=== PATIENT | male | born 1980 | race Caucasian/White ===

== ENCOUNTER 2017-01-05 05:39 | Emergency (ER) | payer BC, OTHER ==
[~2017-01-05] VITALS: Ht 170.2 cm; Wt 100.7 kg
[2017-01-05 05:42] VITALS: Ht 170.2 cm; Wt 100.7 kg
--- NOTE | 2017-01-05 06:07 | EMERGENCY ROOM VISIT NOTE ---
History First contact with patient: 05:49 Chief Complaint: TESTICULAR PAIN Stated Complaint: TESTICULAR PAIN,DISCOMFORT TO URINATE History of Present Illness The patient is a 36 year old male who presents to the Emergency Room with complaints of testicular pain and urinary symptoms. The patient reports that for the last few weeks, he has had a sensation of incomplete emptying after urinating. He did see his primary care provider about this 2 weeks ago and had blood in the urine at that time. He was prescribed Bactrim for 10 days and states this seemed to improve his symptoms. However, the patient's symptoms returned after completing the Bactrim. The patient was again seen by his primary care provider yesterday and had a urine sample and culture performed. He was told that the urine was normal. He has had some intermittent right testicular pain and was seen by his primary care provider a few months ago regarding this. He had ultrasound which was negative, but was told to return here if his pain returned. He states that about one hour ago, he developed right testicular pain which lasted for a few minutes and then went away. He does have a sensation of incomplete emptying as well. He had an additional episode of pain while in the waiting room. He denies any pain at this time. He denies any abdominal or back pain. He denies any fevers/chills. He is scheduled to see a urologist next month. Review of Systems A complete 10 point review of systems was reviewed with the patient with pertinent positives and negatives as per history of present illness. All else were negative. Social History Smoking Status: Never Smoker Marital Status: Current/Historical Medications Scheduled Dicyclomine Hcl (Dicyclomine Hcl), 20 MG PO QID Omeprazole (Prilosec), 40 MG PO BID Physical Exam Vital Signs Date Time Temp Pulse Resp B/P (MAP) Pulse Ox O2 Delivery O2 Flow Rate FiO2 01/05/17 09:59 36.7 71 18 149/92 98 01/05/17 09:12 76 18 142/91 98 Room Air 01/05/17 05:42 36.7 68 20 147/79 99 Room Air Physical Exam VITALS: Vitals are noted on the nurse's note and reviewed by myself. Vital signs stable. GENERAL: This is a 36-year-old male, in no acute distress, nondiaphoretic, well- developed well-nourished. ABDOMEN: Soft, nontender to palpation. : No testicular tenderness. No erythema or swelling. RECTAL: Normal rectal tone. No enlargement of the prostate. No tenderness. NEURO: Patient was alert and oriented to person place and time. Medical Decision & Procedures ER Provider Diagnostic Interpretation: ULTRASOUND TESTES AND SCROTUM CLINICAL HISTORY: Right scrotal pain. COMPARISON STUDY: No priors. TECHNIQUE: Real-time, grayscale, and color Doppler sonography of the testes and scrotum is performed. Images are reviewed in the transverse and longitudinal planes. FINDINGS: The testes are normal in size and homogeneous in echotexture. The right testis measures 4.6 x 2.8 x 3.0 cm and the left testis measures 4.7 x 2.4 x 3.1 cm. No intratesticular mass is seen. Testicular blood flow is normal and symmetric. Normal Doppler waveforms are identified in both testes. The epididymal heads are normal in appearance. The right epididymal head measures 1.1 cm in length and the left epididymal head measures 1.3 cm in length. There is a 6 mm left epididymal head cyst. No varicocele or hydrocele is seen. There is nonspecific scrotal wall thickening. Small bilateral fat-containing inguinal hernias are identified. IMPRESSION: 1. Unremarkable sonographic appearance of the testes. 2. There are small bilateral fat-containing inguinal hernias. Laboratory Results Test 01/05/17 06:15 Urine Color DK YELLOW Urine Appearance CLEAR (CLEAR) Urine pH 5.0 (4.5-7.5) Urine Specific [place] 1.034 (1.000-1.030) Urine Protein TRACE (NEG) Urine Glucose (UA) NEG (NEG) Urine Ketones NEG (NEG) Urine Occult Blood NEG (NEG) Urine Nitrite NEG (NEG) Urine Bilirubin NEG (NEG) Urine Urobilinogen NEG (NEG) Urine Leukocyte Esterase NEG (NEG) Urine WBC (Auto) 1-5 /hpf (0-5) Urine RBC (Auto) 0-4 /hpf (0-4) Urine Hyaline Casts (Auto) 5-10 /lpf (0-5) Urine Epithelial Cells (Auto) 10-20 /lpf (0-5) Urine Bacteria (Auto) NEG (NEG) Medications Administered Medications (Trade) Dose Ordered Sig/Marek Route Start Time Stop Time Status Last Admin Dose Admin Ibuprofen (Motrin Tab) 800 mg NOW STAT PO 01/05/17 07:20 01/05/17 07:21 DC 01/05/17 07:28 800 MG Medical Decision Differential diagnosis includes epididymitis, UTI, herpes zoster, varicocele, hydrocele, prostatitis, among others. Patient was evaluated as above. He has had multiple workups for the same symptoms. He recently had a negative urine culture. Urinalysis today is not suggestive of infection. Testicular ultrasound is unremarkable. and rectal exams were unremarkable. Case management was able to make the patient an appointment with urology tomorrow. The patient was encouraged to keep this appointment. Verbal discharge instructions were discussed. He verbalized understanding and was discharged home in good condition. Medication Reconcilliation Current Medication List: was personally reviewed by in Blood Pressure Screening Patient's blood pressure: Elevated blood pressure Blood pressure disposition: Elevated BP felt to be situational Impression Primary Impression: Testicular pain Departure Information Referrals Cheri Fu D.O. (PCP) Patient Instructions My [facility]
[2017-01-05 06:44] LABS: URINE APPEARANCE CLEAR (CLEAR); URINE COLOR DK YELLOW; URINE NITRITE NEG (NEG); URINE SPECIFIC GRAVITY 1.034 (1.000-1.030); UROBILINOGEN NEG (NEG); ZZUR CULT IF INDIC CLEAN CATCH NO
[2017-01-05 06:47] LABS: MANUAL MICROSCOPIC REQUIRED? NO; REVIEW REQ? NO; URINE BILIRUBIN NEG (NEG)
[2017-01-05] MEDS ORDERED: OMEP40CA41 PO (06:56)
[2017-01-05] MEDS ORDERED: DICY20TA10 PO (06:56)
[2017-01-05] MEDS ORDERED: IBUPROFEN 800 MG TAB PO STA (07:20)
--- NOTE | 2017-01-05 09:08 | DIAGNOSTIC IMAGING REPORT ---
ULTRASOUND TESTES AND SCROTUM CLINICAL HISTORY: Right scrotal pain. COMPARISON STUDY: No priors. TECHNIQUE: Real-time, grayscale, and color Doppler sonography of the testes and scrotum is performed. Images are reviewed in the transverse and longitudinal planes. FINDINGS: The testes are normal in size and homogeneous in echotexture. The right testis measures 4.6 x 2.8 x 3.0 cm and the left testis measures 4.7 x 2.4 x 3.1 cm. No intratesticular mass is seen. Testicular blood flow is normal and symmetric. Normal Doppler waveforms are identified in both testes. The epididymal heads are normal in appearance. The right epididymal head measures 1.1 cm in length and the left epididymal head measures 1.3 cm in length. There is a 6 mm left epididymal head cyst. No varicocele or hydrocele is seen. There is nonspecific scrotal wall thickening. Small bilateral fat-containing inguinal hernias are identified. IMPRESSION: 1. Unremarkable sonographic appearance of the testes. 2. There are small bilateral fat-containing inguinal hernias. Electronically signed by: Alonso Su M.D. 01/05/2017 9:07 AM Dictated Date/Time: 01/05/2017 8:58 AM
[2017-01-05 09:59] VITALS: BP 149/92; PULSE 71; TEMP 36.7; O2SAT 98
== END 2017-01-05 10:00 | disposition home or self-care (01) ==
LOC: C.EDB 05:40 → C.EDA 10:00
DX: N50.819 Testicular pain, unspecified (principal)